=== PATIENT | female | born 2000 | race Caucasian/White ===

== ENCOUNTER → 2023-05-27 13:41 | Outpatient (REF) | payer OTHER, SELFPAY | LOC: HWRAD 13:41 | PROVIDERS: ATTENDING PHYSICIAN Emergency Medicine | DX: R22.1 Localized swelling, mass and lump, neck (principal); R61 Generalized hyperhidrosis | CPT/HCPCS: 76536 ==

== ENCOUNTER → 2024-06-21 13:06 | Outpatient (REF) | payer OTHER, SELFPAY | LOC: RAD 13:06 | PROVIDERS: ATTENDING PHYSICIAN Nurse Practitioner Family | DX: M25.562 Pain in left knee (principal) | CPT/HCPCS: 73564 ==

== ENCOUNTER → 2024-12-06 13:19 | Outpatient (REF) | payer OTHER, SELFPAY | LOC: HWRAD 13:19 | PROVIDERS: ATTENDING PHYSICIAN Obstetrics & Gynecology; FAMILY PHYSICIAN Emergency Medicine | DX: Z30.431 Encounter for routine checking of intrauterine contraceptive device (principal) | CPT/HCPCS: 76830; 76856 ==